=== PATIENT | male | born 1955 | race Caucasian/White ===

== ENCOUNTER → 2018-07-29 14:35 | Outpatient (CLI) | payer MEDICARE, SELFPAY ==
--- NOTE | 2018-07-29 14:45 | RAD_ITS ---
STUDY: X-RAY - PELVIS REASON FOR EXAM: Male, 62 years old. Inflammatory polyarthropathy. TECHNIQUE: One view of the pelvis was obtained. COMPARISON: None. FINDINGS: There is a non-specific bowel gas pattern. Ring of anastomotic sutures project in the medial left lower quadrant. A few mild atherosclerotic vascular calcifications project in the medial right lower quadrant. There are multilevel degenerative changes of the visualized lumbar spine. 1.8 cm crescent-shaped degenerative calcification or old cortical avulsion noted along the inferior margin of the lateral right iliac wing. Additional small cortical enthesophytes are also present bilaterally. Normal bilateral sacroiliac joints and visualized sacrum. Normal visualized bilateral superior and inferior pubic rami. Normal pubic symphysis. Normal ischial tuberosities. There is no demonstrated osseous destructive lesion or acute fracture. Normal visualized right femoral head. Normal right acetabulum. Normal right hip joint. Normal visualized left femoral head. Normal left acetabulum. Normal left hip joint. RAD/Pelvis 1 or 2 Views IMPRESSION: Degenerative changes of the lower lumbar spine. No acute osseous abnormality of the pelvis. Electronically Signed: Jose Ortiz MD at 15:01 EST , Service support ,
== END ==
PROVIDERS: Referring Provider Internal Medicine Rheumatology; Visit Provider Internal Medicine Rheumatology
DX: M06.4 Inflammatory polyarthropathy (principal); M79.7 Fibromyalgia; L40.8 Other psoriasis; I10 Essential (primary) hypertension; N40.1 Benign prostatic hyperplasia with lower urinary tract symptoms; N20.0 Calculus of kidney; F32.89 Other specified depressive episodes; Z87.74 Personal history of (corrected) congenital malformations of heart and circulatory system; Z85.038 Personal history of other malignant neoplasm of large intestine; Z90.49 Acquired absence of other specified parts of digestive tract
CPT/HCPCS: 72170